=== PATIENT | male | born 1965 ===

== ENCOUNTER 2022-05-14 12:57 | Observation (INO) ==
[~2022-05-14 12:57] MED LIST: Acetaminophen IV 1,000 MG/100 ML BAG IVPB ONE; Albuterol 2.5 MG/3 ML NEBULIZER IH PRN; Famotidine 20 MG/2 ML VIAL IVP ONE; Naloxone 0.4 MG/ML INJ IVP PRN; Nitroglycerin 0.4 MG TAB.SUBL SL PRN; Ondansetron 4 MG/2 ML VIAL IVP PRN; Ringers Solution, Lactated 1,000 ML IVC ONE
[2022-05-14] MEDS ORDERED: CeFAZolin Syr 2,000MG/20 ML 2,000 MG/20 ML SYRINGE IVPB ONE (13:42)
[2022-05-14] MEDS ORDERED: Lidocaine HCL 4 ML Topical Solution (Laryng-O-Jet Kit Sterile Pak) TP ONE (14:35)
[2022-05-14] MEDS ORDERED: *HR* Midazolam HCl 2 MG/2 ML VIAL ONE (14:36)
[2022-05-14] MEDS ORDERED: Ketamine HCL *QUVA* 50mg (1mL) SYRINGE ONE (14:36)
[2022-05-14] MEDS ORDERED: *HR* Propofol 200 MG/20 ML VIAL IVP ONE (14:36)
[2022-05-14] MEDS ORDERED: *HR* FentaNYL (PF) 100 MCG/2 ML VIAL ONE (14:36)
[2022-05-14] MEDS ORDERED: *HR* Rocuronium Bromide 50 MG/5 ML VIAL ONE ×2 (14:38→16:11)
[2022-05-14] MEDS ORDERED: Lidocaine -MPF 2% 5 ML VIAL ONE (14:38)
[2022-05-14] MEDS ORDERED: *HR* Succinylcholine 200 MG/10 ML VIAL IVP ONE (14:38)
[2022-05-14] MEDS ORDERED: Ondansetron 4 MG/2 ML VIAL ONE (14:40)
[2022-05-14] MEDS ORDERED: *HR* Magnesium Sulfate 1 GM/2 ML VIAL ONE (14:40)
[2022-05-14] MEDS ORDERED: *HR* HYDROMORPHONE 2 MG/ML VIAL ONE (14:43)
[2022-05-14] MEDS ORDERED: Ketorolac 30 MG/ML VIAL ONE (17:19)
[2022-05-14] MEDS ORDERED: *HR* Labetalol 20 MG/4 ML SYRINGE IVP ONE (17:19)
[2022-05-14] MEDS: *HR* FentaNYL (PF) 100 MCG/2 ML VIAL IVP PRN ×4 (18:05→19:22)
[2022-05-14] MEDS ORDERED: Ipratropium/Albuterol Neb 3 ML ONE ×2 (18:50→19:30)
[2022-05-14] MEDS ORDERED: Ipratropium/Albuterol Neb 3 ML IH ONE ×2 (18:50→19:40)
[2022-05-14] MEDS ORDERED: *HR* HYDROmorphone (PF) 1 MG/ML SYRINGE IVP ONE (19:58)
[2022-05-14] MEDS ORDERED: Ondansetron ODT 4 MG TAB.RAPDIS SL PRN (22:07)
[2022-05-14] MEDS: 0.9 % Sodium Chloride 1,000 ML IVC SCH (22:37)
[2022-05-15] MEDS: *HR* Heparin 5,000 UNIT/ML VIAL SQ SCH ×3 (06:01→23:05)
[2022-05-15] MEDS ORDERED: *HR* OxyCODONE Immed Rel 5 MG TABLET PO ONE (10:13)
[2022-05-15] MEDS ORDERED: *HR* HYDROmorphone (PF) 1 MG/ML SYRINGE IVP ONE (11:31)
[2022-05-15] MEDS: 0.9 % Sodium Chloride 1,000 ML IVC SCH (11:58)
[2022-05-16] MEDS: 0.9 % Sodium Chloride 1,000 ML IVC SCH (00:37)
[2022-05-16] MEDS: *HR* Heparin 5,000 UNIT/ML VIAL SQ SCH ×2 (06:13→15:10)
[2022-05-16] MEDS ORDERED: hydroCHLOROthiazide 25 MG TABLET PO SCH (09:00)
[2022-05-16] MEDS ORDERED: lisinopriL 20 MG TABLET PO SCH (09:00)
[2022-05-16 15:54] VITALS: BP 150/90; PULSE 75; TEMP 98.3; O2SAT 90
== END 2022-05-16 18:49 | disposition home or self-care (01) ==
LOC: SAMDAY 12:57 → 3NENU 12:57
PROVIDERS: ADMIT Surgery; ATTEND Surgery